=== PATIENT | female | born 1955 | race Two or more races ===

== ENCOUNTER 2018-09-16 10:10 | Emergency (ER) | payer OTHER ==
[~2018-09-16] VITALS: Ht 152.4 cm; Wt 115.7 kg
[~2018-09-16 10:10] MED LIST: GLIPIZIDE10 MG; GLUCOPHAGE XR500 MG; LISINOPRIL20 MG; METFORMIN HCL500 MG; NORVASC5 MG
[2018-09-16] MEDS ORDERED: PENTOXIFYLLINE400 MG (10:48)
[2018-09-16] MEDS ORDERED: NAPROXEN500 MG (10:49)
[2018-09-16] MEDS ORDERED: NORVASC5 MG (10:49)
== END 2018-09-16 19:46 | disposition home or self-care (01) ==
LOC: ER 10:10
DX: L03.116 Cellulitis of left lower limb (principal)

== ENCOUNTER 2018-10-03 19:31 | Emergency (ER) | payer OTHER ==
[~2018-10-03] VITALS: Ht 152.4 cm; Wt 124.7 kg
[~2018-10-03 19:31] MED LIST changes: +NAPROXEN500 MG; +PENTOXIFYLLINE400 MG
== END 2018-10-03 22:46 | disposition home or self-care (01) ==
LOC: ER 19:31
DX: L03.116 Cellulitis of left lower limb (principal)

== ENCOUNTER 2019-04-06 15:47 | Emergency (ER) | payer OTHER ==
[~2019-04-06] VITALS: Ht 152.4 cm; Wt 129.3 kg
== END 2019-04-06 20:06 | disposition home or self-care (01) ==
LOC: ER 15:47
DX: R42 Dizziness and giddiness (principal)